=== PATIENT | male | born 1985 | race Caucasian/White ===

== ENCOUNTER 2018-09-03 13:35 | Outpatient (CLI) | payer BC, SELFPAY ==
--- NOTE | 2018-09-03 11:11 | DI.RAD_ITS ---
SYMPTOMS/DIAGNOSIS: ACUTE BRONCHITIS WITH PERSISTENT ASTHMA SYMPTOMS, JR5.901- UNSPECIFIED ASTHMA WITH ACUTE EXACERBATION CHEST X-RAY, PA AND LATERAL: Comparison is 01/28/16. The heart is normal in size. The lungs are clear. The mediastinal structures and pleura appear intact. IMPRESSION: Normal chest.
== END 2018-09-03 13:55 ==
PROVIDERS: PCP Family Medicine; Visit Provider Family Medicine
DX: J20.9 Acute bronchitis, unspecified (principal); J45.901 Unspecified asthma with (acute) exacerbation
CPT/HCPCS: 71046

== ENCOUNTER 2020-09-10 01:04 | Outpatient (CLI) | payer BC, SELFPAY ==
[2020-09-10 09:23] LABS: ALT 77 U/L (16-63); AST 28 U/L (15-37); Albumin 3.6 g/dL (3.4-5.0); Alkaline Phosphatase 97 U/L (46-116); Anion Gap 7.9 mmol/L (3-11); BUN 15 mg/dL (7-18); Bilirubin, Total 0.5 mg/dL (0.2-1.0); CO2 28.1 mmol/L (21.0-32.0); CREATININE 1.01 mg/dL (0.70-1.30); Calcium 8.7 mg/dL (8.5-10.1); Calculated LDL 87 mg/dL (<100); Chloride 105 mmol/L (98-107); Cholesterol 158 mg/dL (<200); Glucose 105 mg/dL (74-106); HDL Cholesterol 46 mg/dL (40-60); Potassium 4.2 mmol/L (3.5-5.1); Sodium 141 mmol/L (136-145); TSH (W/Ref FT4) 0.83 uIU/mL (0.36-3.74); Total Protein 7.4 g/dL (6.4-8.2); Triglyceride 126 mg/dL (<150)
[2020-09-10 10:12] LABS: Hemoglobin A1C 5.8 % (<5.7)
== END 2020-09-10 01:24 ==
PROVIDERS: PCP Family Medicine; Visit Provider Family Medicine
DX: R73.9 Hyperglycemia, unspecified (principal); R79.89 Other specified abnormal findings of blood chemistry
CPT/HCPCS: 36415; 80053; 80061; 83036; 84443

== ENCOUNTER 2021-11-30 17:22 | Outpatient (REF) | payer BC, SELFPAY ==
[2021-12-02 13:30] LABS: COVID-19 RT-PCR UVMMC Result Negative (Negative)
== END 2021-11-30 17:23 | disposition home or self-care (01) ==
LOC: LBN 17:22
PROVIDERS: PCP Family Medicine; Visit Provider Family Medicine
DX: Z20.822 Contact with and (suspected) exposure to COVID-19 (principal)
CPT/HCPCS: U0003

== ENCOUNTER 2023-06-28 04:06 | Outpatient (CLI) | payer BC, SELFPAY ==
[2023-06-28 14:02] LABS: Hemoglobin A1C 5.5 % (<5.7)
[2023-06-28 14:25] LABS: Calculated LDL 75 mg/dL (<100); Cholesterol 170 mg/dL (<200); HDL Cholesterol 43 mg/dL (40-60); Triglyceride 260 mg/dL (<150)
== END 2023-06-28 04:07 | disposition home or self-care (01) ==
LOC: LBO 04:06
PROVIDERS: PCP Nurse Practitioner Family; Visit Provider Nurse Practitioner Family
DX: Z13.220 Encounter for screening for lipoid disorders (principal); Z13.1 Encounter for screening for diabetes mellitus
CPT/HCPCS: 36415; 80061; 83036

== ENCOUNTER 2025-02-22 02:00 | Emergency (ER) | payer BC, SELFPAY ==
[2025-02-22] VITALS (27 sets, daily range): BP systolic 121–170; BP diastolic 68–101; PULSE 88–204; RESP 2–28; TEMP 37.3–37.6; O2SAT 90–98
--- NOTE | 2025-02-22 02:17 | ED.GENADUL_ITS ---
Discharge Plan Disposition Patient Disposition: Home Condition: Good Discharge Details Clinical Impression: Influenza, Asthma exacerbation Primary Care Provider: Arun Corrales ED Provider: Uzair Conner Home Meds and New Rx's Prescriptions: New prednisone 50 mg tablet 50 mg PO DAILY Qty: 5 0RF No Action (DME) Aerochamber MV Spacer See Rx Instructions .ROUTE .MEDSUPPLY Qty: 1 0RF Rx Instructions: As directed (DME) CPAP 0 .ROUTE .MEDSUPPLY albuterol sulfate [Ventolin HFA] 90 mcg/actuation HFA aerosol inhaler 2 puff IH Q4H PRN (Reason: shortness of breath or wheezing) Qty: 18 11RF Discharge Instructions Instructions: Asthma, Adult ED, Flu, Adult ED Additional Instructions: At this time you have evidence of an asthma exacerbation in conjunction with an influenza infection. Thankfully there is no evidence of pneumonia on your chest x-ray. However please be very mindful, if you notice a worsening cough, increased shortness of breath, this could represent development of pneumonia indeed it is critical that you return for reassessment for potential decision making on antibiotics. Please take the steroid as directed. Is been sent to your pharmacy on file and this will help reduce the inflammation in your lungs from your asthma. Additionally please take the Symbicort inhaler that is been given, 2 puffs every 12 hours for the next 1 to 2 weeks. Please also continue to use your albuterol as prescribed. If you notice any worsening of your symptoms, or any new symptoms such as vomiting, diarrhea, fever, chills, shortness of breath, chest pain, numbness, weakness, or fainting , please return immediately to the emergency department for reevaluation. Please follow up with your primary care provider as soon as possible for reassessment and reevaluation. As always, it was a pleasure participating in your medical care today. Referrals: Arun Corrales, LYUDMILA [Primary Care Provider] - [facility] General Date/Time Provider Initiated Documentation: 02/22/25 02:01 . HPI Narrative: This is a very pleasant 39-year-old male with a past medical history of obstructive sleep apnea, asthma, who presents today for evaluation of fever and chills and cough. Patient states that for the last 5 days he has had fever, runny nose, congestion, mild frontal headache, chills, and cough. His breathing has been slightly worse than normal. He has been taking his albuterol inhaler but this has not been improving his symptoms for a long period he is coughing up white clear sputum. Symptoms are made worse when he lies flat lays down. Improved when he stands up. He denies any chest pain. He does feel slightly short of breath. He denies any arm neck or shoulder pain. He denies any vomiting or diarrhea. No other sick contacts at home. He does not smoke and never has. Related Data Home Medications ?Medication ?Instructions ?Recorded ?Confirmed inhalational spacing device #1 ea 09/07/20 02/22/25 (Aerochamber MV spacer) CPAP 06/23/23 02/22/25 albuterol sulfate 90 mcg/actuation 2 puff inhalation Q4H PRN 12/20/24 02/22/25 aerosol inhaler (Ventolin HFA) shortness of breath or wheezing #18 grams prednisone 50 mg tablet 50 mg PO DAILY #5 tabs 02/22/25 Previous Rx's ?Medication ?Instructions ?Recorded inhalational spacing device #1 ea 09/07/20 (Aerochamber MV spacer) albuterol sulfate 90 mcg/actuation 2 puff inhalation Q4H PRN 12/20/24 aerosol inhaler (Ventolin HFA) shortness of breath or wheezing #18 grams prednisone 50 mg tablet 50 mg PO DAILY #5 tabs 02/22/25 Allergies Allergy/AdvReac Type Severity Reaction Status Date / Time erythromycin base Allergy Mild Topical Verified 02/22/25 02:09 (Erythromycin Base) Irritation General Stated Complaint: RespSymp ANNA: 3 Exam Narrative Exam Narrative: 1.Const: Well-nourished, Well-developed, appearing stated age 2.Eyes: PERRL, no conjunctival injection, and symmetrical lids. 3.ENT: Atraumatic external nose and ears. Moist MM. Neck: Symmetric, trachea midline, No thyromegaly. 4.CVS: +S1/S2, Peripheral pulses 2+ and equal in all extremities. Brisk capillary refill in all extremities. 5.RESP: Unlabored respiratory effort. Diminished breath sounds throughout. However no significant wheezes rales or rhonchi. 6.GI: Soft, Nontender/Nondistended, No hepatosplenomegaly. No guarding or rebound. 7.MSK: Normocephalic/Atraumatic, Extremities w/o deformity or ttp No cyanosis or clubbing, Normal movement of all extremities. No pitting edema in lower extremities. 8.Skin: Warm, Dry. No rashes or lesions. 9.Neuro: radiosonde specialist II-XII grossly intact. Sensation grossly intact, no focal neurologic deficits. 10.Psych: (AAO) x3. Appropriate mood and affect Course Vital Signs Vital signs: Vital Signs Temperature 37.6 C H 02/22/25 02:03 Pulse 113 H 02/22/25 02:03 Respiratory Rate 20 02/22/25 02:03 Blood Pressure 170/91 H 02/22/25 02:03 Pulse Oximetry 93 02/22/25 02:03 Temperature 37.6 C H 02/22/25 02:03 Pulse 113 H 02/22/25 02:03 Respiratory Rate 20 02/22/25 02:03 Blood Pressure 170/91 H 02/22/25 02:03 Blood Pressure Position Sitting 02/22/25 02:03 Pulse Oximetry 93 02/22/25 02:03 Oxygen Delivery Method Room Air 02/22/25 02:03 Oxygen Flow Rate 0 02/22/25 02:03 Pain Level 4 02/22/25 02:03 Lab/Test Results Lab/Test Results: 02/22/25 02:10 Blood Blood Culture - Pending 02/22/25 02:10 Blood Blood Culture - Pending Medical Decision Making This is a very pleasant 39-year-old male with a past medical history of obstructive sleep apnea, asthma, who presents today for evaluation of fever and chills and cough. Patient states that for the last 5 days he has had fever, runny nose, congestion, mild frontal headache, chills, and cough. His breathing has been slightly worse than normal. He has been taking his albuterol inhaler but this has not been improving his symptoms for a long period he is coughing up white clear sputum. Symptoms are made worse when he lies flat lays down. Improved when he stands up. He denies any chest pain. He does feel slightly short of breath. He denies any arm neck or shoulder pain. He denies any vomiting or diarrhea. No other sick contacts at home. He does not smoke and never has. Exam demonstrates diminished breath sounds, but no severe wheezes rales or rhonchi. No pitting edema in the lower extremities. Differential includes pneumonia, flu or COVID, viral upper respiratory infection, and asthma exacerba tion chiefly. Symptoms appear inconsistent with ACS as he has no chest pain, arm neck or shoulder pain or chest heaviness. No pleuritic chest pain to suggest PE. The positional component of his symptoms is atypical. He has no pitting edema to suggest severe CHF, but in addition to potential pneumonia there could also be a component of a pleural effusion. We will evaluate for this, we will give a breathing treatment and steroids for suspected asthma component. Will test for infectious etiologies get a chest x-ray monitor closely and reassess. 4:36 AM Earned and demonstrates no significant abnormalities. No white count bandemia or left shift. VBG normal, proBNP normal suggesting no evidence of CHF, procalcitonin normal suggesting no evidence of bacterial sepsis. COVID flu and RSV is positive for influenza type B. Chest x-ray negative for evidence of pneumonia. After breathing treatment and steroids and IV fluids the patient is feeling much better. He feels well and shows no signs of significant respiratory distress. At this time patient is not a candidate for Tamiflu being 5 days out from initial onset of symptomatology, there would be little to no benefit of Tamiflu at this stage. However that being said we did offer this as an option to the patient. He has deferred at this time. I do feel that the patient's symptomatology is indicative of an asthma exacerbation with influenza B. We will give a prescription for prednisone for home. Will give Symbicort inhaler here. Recommend close monitoring of his symptoms to look for pneumonia if his symptoms change or worsen. Discussed red flags for which to return. I have extensively reviewed the treatment plan and discharge instructions with the patient. I have addressed all patient concerns at this time. The patient was made aware of what symptoms to monitor for that would warrant a return to the emergency department. Discussed the plan with the patient, they demonstrate verbal understanding and agreement with our assessment and plan at this time. The documentation in this chart was dictated using [employer] dictation software. Please excuse any dictation errors. FINDINGS: Lungs: No focal consolidation seen. Pleural spaces: No large pleural effusion seen. Heart/Mediastinum: No cardiomegaly. Bones/joints: No acute abnormality. IMPRESSION: No acute findings to explain reported symptoms. Thank you for allowing us to participate in the care of your patient. Dictated and Authenticated by: Shelley Black MD 02/22/2025 3:05 AM Eastern Time ([place] & [place]) Quality:SDOH Health Related Social Needs: No Data to Display PFSH All Active Problems (Updated 02/22/25 @ 04:30 by Uzair Conner DO) Asthma exacerbation (Acute) Influenza (Acute) Obstructive sleep apnea on CPAP (Acute) Snoring (Acute) CPAP Obesity (Chronic) Mild persistent asthma (Acute) Usually provoked by URI, treated with as needed albuterol inhaler nebulizer (As of 02/2022-patient declines routine flu shot and Pneumovax) Seasonal allergic reaction (Acute) Social History (Updated 07/02/24 @ 11:17 by Milla Villanueva) Smoking/Tobacco Use Status: Never Second Hand Exposure: Yes Smoking risk assessment performed?: Yes Alcohol Intake: current Alcohol Intake frequency: a few times a week Alcohol type: beer Details: 6 or more drinks monthly Drug use: Never Substance use type: does not use Adopted: No Caregiver/Support person: No Household members: spouse and children Housing: house Number of Children: 3 Communication Needs: None Education Level: high school Do you need help understanding health information?: Never 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 Pets and animals: Yes Pets and animals: cat(s) and dog(s) Sexually active: Yes Do you think of yourself as: straight/heterosexual Current gender identity: male What is your relationship status?: How often do you talk on the phone with friends or family?: once per week How often do you get together with friends or relatives?: once per week How often do you attend temple or latter-day services?: decline to answer Do you belong to any clubs or organized social groups?: no Panel score (0-1 are the most socially isolated patients): 1 What type of physical activity do you participate in: walking and weight lifting Duration: > 90 minutes/day Frequency: daily Mari/Sikh: Non protestant Special mari needs: No Seatbelt use: always Helmet use: No Drive intox or ride w/intox school bus driver/teacher assistant: No Firearms in home: Yes Firearms unloaded and locked: Yes Do you feel safe at home: Yes Do you feel safe in your relationship?: Yes Victim of physical abuse: No Victim of emotional abuse: No Victim of sexual abuse: No Would you like helpful sources: No
[2025-02-22 02:31] LABS: BE (Venous) 1 mmol/L (-2-3); HCO3 (Venous) 26 mmol/L (23-28); Lactate 1.1 mmol/L (<or=2.0); O2 Sat (Venous) 79 %; TCO2 (Venous) 23 mmol/L (24-29); pCO2 (Venous) 42 mmHg (41-51); pO2 (Venous) 41 mmHg
[2025-02-22 02:32] LABS: Abs Immature Grans 0.02 10^3/uL (0.0-0.06); Absolute Basophil Count 0.01 10^3/uL (0.0-0.2); Absolute Eosinophil Count 0.08 10^3/uL (0.0-0.7); Absolute Monocyte Count 0.47 10^3/uL (0.1-0.8); Absolute Neutrophil Count 3.79 10^3/uL (1.2-6.7); Basophils % 0.2 %; Eosinophils % 1.4 %; HCT 47.4 % (40.0-50.0); HGB 15.5 g/dL (13.5-17.5); Immature Grans % 0.4 %; Lymphocytes % 21.5 %; MCH 28.2 pg (27.0-33.0); MCHC 32.7 % (32.0-36.0); MCV 86 fL (80-95); MPV 9.4 fL (8.0-11.0); Monocytes % 8.4 %; Neutrophils % 68.1 %; Platelet Count 244 10^3/uL (130-400); RBC 5.49 10^6/uL (4.36-5.78); RDW 13.1 % (11.8-14.1); RDW-SD 41.5 fL; WBC 5.57 10^3/uL (4.4-10.8)
--- NOTE | 2025-02-22 02:41 | DI.RAD_ITS ---
Exam(s) XR CHEST 2V PA LATERAL EXAM: XR CHEST 2V PA LATERAL CLINICAL HISTORY: cough, SOB, r/o pneumonia. TECHNIQUE: 2D digital imaging was performed. COMPARISON: No exams were available for comparison FINDINGS: 2 views: Heart size is normal. The mediastinum is not widened. Lungs are clear. No infiltrates nor pleural effusions. IMPRESSION: No acute pulmonary findings. DATA REPOSITORY: RADIATION DOSE DELIVERED:
[2025-02-22] MEDS: Ketorolac 15 MG/ML VIAL IVP (02:51)
[2025-02-22] MEDS: Albuterol/Ipratropium 3 ML UPD VIAL UPD (02:51)
[2025-02-22] MEDS: methylPREDNISolone SUCC 125 MG VIAL IVP (02:51)
[2025-02-22] MEDS: Lactated Ringers 1,000 ML 1000 ML IV (02:52)
[2025-02-22 02:58] LABS: ALT 53 U/L (16-63); AST 21 U/L (15-37); Albumin 3.6 g/dL (3.4-5.0); Alkaline Phosphatase 99 U/L (46-116); BUN 13 mg/dL (7-18); Bilirubin, Total 0.3 mg/dL (0.2-1.0); CREATININE 1.1 mg/dL (0.70-1.30); Calcium 8.7 mg/dL (8.5-10.1); Chloride 102 mmol/L (98-107); Estimated GFR 87.03 (mL/min/1.73m2); Glucose 125 mg/dL (74-106); NT-proBNP 19 pg/mL (<300); Potassium 3.8 mmol/L (3.5-5.1); Sodium 138 mmol/L (136-145)
--- NOTE | 2025-02-22 03:05 | DI.VRAD_ITS ---
PROCEDURE INFORMATION: Exam: XR Chest Exam date and time: 02/22/2025 2:34 AM Age: 39 years old Clinical indication: Cough and fever and shortness of breath; Cough, SOB, R/O pneumonia TECHNIQUE: Imaging protocol: Radiologic exam of the chest. Views: 2 views. COMPARISON: CR XR CHEST 2V PA LATERAL 09/03/2018 11:14 AM FINDINGS: Lungs: No focal consolidation seen. Pleural spaces: No large pleural effusion seen. Heart/Mediastinum: No cardiomegaly. Bones/joints: No acute abnormality. IMPRESSION: No acute findings to explain reported symptoms. Dictated and Authenticated by: Shelley Black MD. Orderin Dalila Dunne MD
[2025-02-22 03:08] LABS: COVID-19 PCR Negative (Negative); Influenza A PCR Negative (Negative); Influenza B PCR Positive (Negative); RSV PCR Negative (Negative)
[2025-02-22 03:17] LABS: Source Nasopharynx
[2025-02-22 03:27] LABS: Procalcitonin < 0.10 ng/mL
[2025-02-22] MEDS: Budesonide/Formoterol 160/4.5 6 GM 60 PUFF INH IH (04:34)
== END 2025-02-22 05:20 | disposition home or self-care (01) ==
PROVIDERS: Emergency Provider Student in an Organized Health Care Education/Training Program; PCP Nurse Practitioner Family
DX: J11.1 Influenza due to unidentified influenza virus with other respiratory manifestations; J45.901 Unspecified asthma with (acute) exacerbation; R50.9 Fever, unspecified
CPT/HCPCS: 80053; 82805; 84145; 87040; 87637; 94640; 96361; 96374; 96375; 99284; 71046; 83605; 83880; 85025; J1885; J2919; J7620

== ENCOUNTER 2025-08-18 03:37 | Outpatient (CLI) | payer BC, SELFPAY ==
[2025-08-18 16:46] LABS: Hemoglobin A1C 5.6 % (<5.7)
[2025-08-18 17:17] LABS: Calculated LDL 59 mg/dL (<100); Cholesterol 154 mg/dL (<200); HDL Cholesterol 40 mg/dL (>or=40); TSH (W/Ref FT4) 0.87 uIU/mL (0.36-3.74); Triglyceride 279 mg/dL (<150)
== END 2025-08-18 03:38 | disposition home or self-care (01) ==
LOC: LOS 03:37
PROVIDERS: PCP Nurse Practitioner Family; Visit Provider Nurse Practitioner Family
DX: E03.9 Hypothyroidism, unspecified (principal); Z13.1 Encounter for screening for diabetes mellitus; Z13.220 Encounter for screening for lipoid disorders
CPT/HCPCS: 36415; 80061; 83036; 84443